=== PATIENT | female | born 1970 | race American Indian/Alaskan Native ===

== ENCOUNTER 2016-09-01 08:47 | Inpatient (IN) | payer SELFPAY ==
--- NOTE | 2016-08-31 23:57 | CP.PCM.HP ---
History of Present Illness - History of Present Illness History of Present Illness: 45yo female with h/o a large fibroid uterus reporting today for a scheduled total abdominal hysterectomy. The risks of the procedure including but not restricted to injury to vital organs like the bowels, bladder, major blood vessels as well as ureters with possibilities of bleeding and infection and alternatives to the procedure including conservative management, [place], Endometrial ablation were discussed. Pt has verbalized understanding of the issues discussed and signs a consent. Present on Admission - Present on Admission Any Indicators Present on Admission: No Review of Systems - Review of Systems All systems: reviewed and no additional remarkable complaints except Past Patient History - Past Medical History & Family History Past Medical History?: Yes - Past Social History Smoking Status: Never Smoked Drugs: Denies - CARDIAC Hx Cardiac Disorders: No - PULMONARY Hx Respiratory Disorders: No - NEUROLOGICAL Hx Neurological Disorder: No - HEENT Hx HEENT Problems: No - RENAL Hx Chronic Kidney Disease: No - ENDOCRINE/METABOLIC Hx Endocrine Disorders: Yes Hx Hypothyroidism: Yes - HEMATOLOGICAL/ONCOLOGICAL Hx Blood Disorders: No - INTEGUMENTARY Hx Dermatological Problems: No - MUSCULOSKELETAL/RHEUMATOLOGICAL Hx Musculoskeletal Disorders: No - GASTROINTESTINAL Hx Gastrointestinal Disorders: No - GENITOURINARY/GYNECOLOGICAL Hx Genitourinary Disorders: No : 2 Para: 1 Termination of : 1 - PSYCHIATRIC Hx Psychophysiologic Disorder: No - SURGICAL HISTORY Hx Surgeries: Yes Hx Section: Yes (X1) - ANESTHESIA Hx Anesthesia: Yes Hx Anesthesia Reactions: No Hx Malignant Hyperthermia: No Has any member of the family had a problem w/ anesthesia?: No Meds Allergies/Adverse Reactions: Allergies Allergy/AdvReac Type Severity Reaction Status Date / Time No Known Allergies Allergy Verified 08/25/16 10:11 Physical Exam - Constitutional Appears: Well - Eye Exam Eye Exam: Normal appearance - Respiratory Exam Respiratory Exam: Clear to Auscultation Bilateral, NORMAL BREATHING PATTERN - Cardiovascular Exam Cardiovascular Exam: REGULAR RHYTHM, RRR - GI/Abdominal Exam GI & Abdominal Exam: Normal Bowel Sounds - Exam External exam: NORMAL EXTERNAL EXAM Bimanual exam: Uterine Enlargement - Extremities Exam Extremities exam: Positive for: normal inspection - Neurological Exam Neurological exam: Alert, Oriented x3 - Psychiatric Exam Psychiatric exam: Normal Affect Results - Vital Signs Recent Vital Signs: Last Vital Signs Temp 96.8 F L 08/25/16 11:54 Pulse 74 08/25/16 11:54 Resp 18 08/25/16 11:54 BP 106/60 08/25/16 11:54 Pulse Ox - Labs Result Diagrams: 09/02/16 07:16 09/02/16 07:16 Assessment & Plan (1) Fibroid uterus Status: Deleted (2) Menorrhagia Status: Deleted - Assessment and Plan (Free Text) Plan: - IV Fluids - Sequential compression device - Mefoxin 2gms 1 hour before incision - Folleys catheter - call out clerk to the OR - Date & Time Date: 09/01/16 Time: 07:45
[2016-09-01] MEDS ORDERED: Bupivacaine 0.5% Inj(30mL) ONE (09:30)
[2016-09-01] MEDS ORDERED: Lidocaine 1% Inj (20ml) ONE (09:30)
[2016-09-01 10:08] VITALS: BMI 26.6
[2016-09-01] MEDS ORDERED: Midazolam 2 MG/2 ML VIAL ONE (10:28)
[2016-09-01] MEDS ORDERED: Propofol 10 mg/ml Inj (20 ML) ONE (10:28)
[2016-09-01] MEDS ORDERED: Rocuronium 10 mg/ml (5 ml) ONE (10:29)
[2016-09-01] MEDS ORDERED: Lactated Ringer's 1,000 ML IV ONE (10:55)
[2016-09-01] MEDS ORDERED: Dexamethasone 4 mg/1 ml ONE (11:14)
[2016-09-01] MEDS ORDERED: Neostigmine Methylsulfate 2 MG/2 ML ML IV ONE (12:13)
[2016-09-01] MEDS ORDERED: HYDROmorphone 0.5 mg/0.5 ml ISec ONE (12:38)
[2016-09-01] MEDS: HYDROmorphone 0.5 mg/0.5 ml ISec IVP PRN ×4 (12:40→14:00)
[2016-09-01] MEDS ORDERED: Lactated Ringer's 1,000 ML IV SCH (12:45)
[2016-09-01] MEDS ORDERED: Naloxone 0.4 mg/ml Inj (Adult) IVP PRN (12:48)
[2016-09-01] MEDS ORDERED: DiphenhydrAMINE 50 mg/ml Inj IVP PRN (12:48)
--- NOTE | 2016-09-01 12:57 | PCM.SURG1 ---
Surgeon's Initial Post Op Note - Surgeon's Notes Surgeon: Dr Bauman Deputy Administrator: Dr Pate Type of Anesthesia: General Endo Anesthesia Administered By: Dr Gaetano Manzano Pre-Operative Diagnosis: Fibroid uterus with Menorrhagia Operative Findings: Large Multinodular Fibroid uterus of about 18wks. Both Ovaries and Fallopian tubes were normal in appearance. Omental adhesions to the posterior surface of the anterior abdominal wall which were released with Ligasure device. IVFluid intake - 1000mls. Urine Output- 300mls. EBL- 100mls Post-Operative Diagnosis: Same as preop diagnosis Operation Performed: Total abdominal Hysterectomy with bilateral salpingectomy and release of adhesions. Specimen/Specimens Removed: Uterus with cervis, Right and left fallopian tubes. Estimated Blood Loss: EBL {In ML}: 100 Blood Products Given: N/A Post-Op Condition: Good Date of Surgery/Procedure: 09/01/16 Time of Surgery/Procedure: 12:59
[2016-09-01] MEDS: cefOXitin 2 GM in Sodium Chloride 0.9% 100 ML IVPB SCH (18:00)
[2016-09-01] MEDS: Lactated Ringer's 1,000 ML IV SCH (22:06)
[2016-09-02] MEDS: cefOXitin 2 GM in Sodium Chloride 0.9% 100 ML IVPB SCH ×2 (00:48→08:21)
--- NOTE | 2016-09-02 07:23 | OP ---
PROCEDURE DATE: 09/01/2016 PREOPERATIVE DIAGNOSES: A 45-year-old female with fibroid uterus and menorrhagia. POSTOPERATIVE DIAGNOSES: A 45-year-old female with fibroid uterus and menorrhagia. PROCEDURE: Total abdominal hysterectomy with bilateral salpingectomy. SURGEON: Dr. Bauman. PRODUCTION EXPEDITER: Dr. Pate. Assistance for the procedure was needed for exposure of tissues and help in the conduct of the surgery. The ophthalmic surgical assistant remained with the procedure throughout its entire length. TYPE OF ANESTHESIA: General endotracheal. ANESTHESIA ADMINISTERED BY: Dr. Gaetano Manzano. OPERATIVE FINDINGS: A large multinodular fibroid uterus of about 18 x 10 x 12 cm. Both ovaries and fallopian tubes were normal in appearance. There were some omental adhesions to the posterior surface of the anterior wall of the uterus and these were released by LigaSure device. INTRAVENOUS FLUID INTAKE: 1000 mL. URINE OUTPUT: 300 mL of clear urine. ESTIMATED BLOOD LOSS: 100 mL. DESCRIPTION OF PROCEDURE: The risks, benefits, indications, and alternatives of the procedure were reviewed with the patient and informed consent was obtained. The patient was taken to the operating room with IV running and Silva catheter in place. The patient was placed in the supine position, given general anesthesia, prepped and draped in a sterile fashion. A Pfannenstiel skin incision was made about 2 cm above the pubic symphysis and this was extended sharply through the rectus fascia. The fascia was then incised bilaterally with curved Sung scissors and the muscles of the anterior abdominal white were in the midline by sharp and blunt dissection. The peritoneum was grasped between 2 pickups, elevated and entered sharply with Metzenbaum scissors. The pelvis was examined with the findings noted above. The uterus was held and brought up. Prior to bringing out the uterus, an O' James-O'Paulino retractor was placed into the incision and the bowels were packed away with moist laparotomy sponges. The uterus was brought out through the abdominal incision and anatomy assessed. The round ligaments on both sides were clamped with a LigaSure device, cauterized and transected. The anterior leaf of the broad ligament was incised along the bladder reflection to the midline from both sides. The bladder was then gently dissected off the lower uterine segment and the cervix with a sponge stick. The ovarian ligament with the fallopian tube on both sides were doubly clamped, cauterized and transected using the Bovie device. Hemostasis was visualized. The uterine arteries were skeletonized bilaterally, clamped with Geraldo clamps, transected, and suture ligated with #0 Vicryl. Again, hemostasis was assured. The uterosacral ligaments were clamped on both sides, transected, and suture ligated in a similar fashion. The cervix and the uterus were amputated with cautery. The vaginal cuff angles were closed with [id number] stitches of #0 Vicryl and were transfixed to the ipsilateral cardinal and uterosacral ligaments. The remainder of the vaginal cuff was closed with a series of interrupted #0 Vicryl [id number] sutures. Hemostasis was assured. Attention was turned to the adnexa on both sides where the fallopian tubes were picked up and fully excised using the LigaSure device on both sides. The excised fallopian tubes were sent for histopathology. Once this procedure was completed, the pelvis was irrigated copiously with warmed normal saline. All laparotomy sponges and instruments were removed from the abdomen. The anterior abdominal wall was closed in layers with 2-0 Vicryl for the peritoneum and the rectus muscles. The rectus fascia was reapproximated using Vicryl #0. The subcutaneous tissue was brought together by means of #2-0 plain catgut. The skin was closed in a subcuticular fashion using #4-0 Biosyn. All counts of instruments, laparotomy pads, and needles used were correct x 3, and the patient was sent to the recovery room awake and in stable condition. Robert Bauman MD cc: [id number] TT: 09/02/2016 07:23:10 onelia PARKER
[2016-09-02 07:35] LABS: HEMATOCRIT 36.8 % (34.0-47.0); MEAN CELL VOLUME 90.8 fl (81.0-99.0); MEAN CORPUSCULAR HEMOGLOBIN 29.7 pg (27.0-31.0); MEAN CORPUSCULAR HGB CONC 32.8 g/dL (33.0-37.0); RED CELL DISTRIBUTION WIDTH 21.4 % (11.5-14.5); WHITE BLOOD COUNT 8.1 K/uL (4.8-10.8)
[2016-09-02 07:48] LABS: BLOOD UREA NITROGEN 6 mg/dl (7-17); CALCIUM 8.5 mg/dL (8.4-10.2); CARBON DIOXIDE 28 mmol/L (22-30); CHLORIDE 103 mmol/L (98-107); GFR AFRICAN-AMERICAN > 60; GLUCOSE,RANDOM 92 mg/dL (65-105); POTASSIUM 3.7 MMOL/L (3.6-5.0); SODIUM 141 mmol/l (132-148)
[2016-09-02] MEDS: Lactated Ringer's 1,000 ML IV SCH (08:22)
[2016-09-02] MEDS: Enoxaparin 40 mg Syringe SC SCH (08:56)
--- NOTE | 2016-09-02 11:35 | CP.PCM.PN ---
Subjective - Date & Time of Evaluation Date of Evaluation: 09/02/16 Time of Evaluation: 11:33 - Subjective Subjective: 45yo female s/p REUBEN and B/L Salpingectomy, POD #1 , reports feeling well today, tolerating po, denies fever and chills , burping but not passed gas. Objective - Vital Signs/Intake and Output Vital Signs (last 24 hours): Temp Pulse Resp BP Pulse Ox 98.8 F 78 18 113/70 98 09/02/16 10:00 09/02/16 10:00 09/02/16 10:00 09/02/16 10:00 09/02/16 10:00 Intake and Output: 09/02/16 09/02/16 06:59 18:59 Intake Total 2290 Output Total 1600 Balance 690 - Medications Medications: Current Medications Diphenhydramine HCl (Benadryl) 25 mg IVP Q6 PRN PRN Reason: Itching / Pruritus Enoxaparin Sodium (Lovenox) 40 mg SC DAILY MARCIN PRN Reason: Protocol Last Admin: 09/02/16 08:56 Dose: 40 mg Hydromorphone HCl (Dilaudid 0.2 Mg/Ml Business Broker) 0 mg IV PRN PRN; Protocol PRN Reason: Pain, moderate (4-7) Last Admin: 09/02/16 08:27 Dose: 6 mg Lactated Ringer's (Lactated Ringer's) 1,000 mls @ 100 mls/hr IV .Q10H [facility] Last Admin: 09/02/16 08:22 Dose: 100 mls/hr Lactated Ringer's (Lactated Ringer's) 1,000 mls @ 125 mls/hr IV .Q8H [facility] Naloxone HCl (Narcan) 0.1 mg IVP Q2M PRN PRN Reason: Excess sedation Ondansetron HCl (Zofran Inj) 4 mg IVP Q8 PRN PRN Reason: Nausea/Vomiting Oxycodone/Acetaminophen (Percocet 5/325 Mg Tab) 2 tab PO Q4 PRN PRN Reason: Pain, severe (8-10) Stop: 09/04/16 12:46 - Labs Labs: 09/02/16 07:16 09/02/16 07:16 - Eye Exam Eye Exam: EOMI - Respiratory Exam Respiratory Exam: Clear to Ausculation Bilateral, NORMAL BREATHING PATTERN - Cardiovascular Exam Cardiovascular Exam: RRR - GI/Abdominal Exam Additional comments: Incision: Clean and dry - Extremities Exam Extremities Exam: Full ROM, Normal Inspection - Neurological Exam Neurological Exam: Oriented x3 - Psychiatric Exam Psychiatric exam: Normal Mood Assessment and Plan (1) S/P total abdominal hysterectomy Status: Acute - Assessment and Plan (Free Text) Plan: - 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
[2016-09-02] MEDS: Oxycodone/Acetaminophen 5/325 mg Tab PO PRN ×2 (12:45→20:32)
[2016-09-02] MEDS: Bacitracin OINT 15GM TOP SCH (18:46)
[2016-09-02] MEDS ORDERED: Simethicone 80 mg Chewtab PO PRN (21:39)
[2016-09-03] MEDS ORDERED: Simethicone 80 mg Chewtab PO SCH (01:00)
[2016-09-03 06:27] VITALS: RESP 20
[2016-09-03] MEDS ORDERED: Simethicone 80 mg Chewtab PO PRN ×2 (07:55→08:54)
[2016-09-03] MEDS: Bacitracin OINT 15GM TOP SCH (09:48)
[2016-09-03] MEDS: Enoxaparin 40 mg Syringe SC SCH (09:49)
[2016-09-03 15:35] VITALS: O2SAT 99
[2016-09-03 15:36] VITALS: BP 122/80; PULSE 88; TEMP 98.4
--- NOTE | 2016-09-10 09:40 | CP.PCM.DIS ---
Provider - Provider Date of Admission: 09/01/16 13:19 Attending physician: Robert Bauman Primary care physician: Maci Bartholomew MD Time Spent in preparation of Discharge (in minutes): 20 Diagnosis - Discharge Diagnosis (1) S/P total abdominal hysterectomy Status: Acute Hospital Course - Lab Results Lab Results: Most Recent Lab Values WBC 8.1 K/uL (4.8-10.8) D 09/02/16 07:16 RBC 4.06 Mil/uL (3.80-5.20) 09/02/16 07:16 Hgb 12.1 g/dL (12.0-16.0) 09/02/16 07:16 Hct 36.8 % (34.0-47.0) 09/02/16 07:16 MCV 90.8 fl (81.0-99.0) 09/02/16 07:16 MCH 29.7 pg (27.0-31.0) 09/02/16 07:16 MCHC 32.8 g/dL (33.0-37.0) L 09/02/16 07:16 RDW 21.4 % (11.5-14.5) H 09/02/16 07:16 Plt Count 297 K/uL (130-400) 09/02/16 07:16 Sodium 141 mmol/l (132-148) 09/02/16 07:16 Potassium 3.7 MMOL/L (3.6-5.0) 09/02/16 07:16 Chloride 103 mmol/L (98-107) 09/02/16 07:16 Carbon Dioxide 28 mmol/L (22-30) 09/02/16 07:16 Anion Gap 14 (10-20) 09/02/16 07:16 BUN 6 mg/dl (7-17) L 09/02/16 07:16 Creatinine 0.5 mg/dL (0.7-1.2) L 09/02/16 07:16 Est GFR ( Amer) > 60 09/02/16 07:16 Est GFR (Non-Af Amer) > 60 09/02/16 07:16 Random Glucose 92 mg/dL (65-105) 09/02/16 07:16 Calcium 8.5 mg/dL (8.4-10.2) 09/02/16 07:16 - Hospital Course Hospital Course: 45yo female s/p REUBEN and B/L salpingectomy, POD #2, clinically stable, passing gas , ambulating and tolerating meals. Pt is being discharged today with regular diet and regular activity. Pt should f/u at the clinic in 2 weeks. All other complaints could be sent to the nearest ER or to the clinic. Discharge Exam - Eye Exam Eye Exam: EOMI Pupil Exam: PERRL - Respiratory Exam Respiratory Exam: Clear to PA & Lateral, NORMAL BREATHING PATTERN - Cardiovascular Exam Cardiovascular Exam: REGULAR RHYTHM - GI/Abdominal Exam GI & Abdominal Exam: Normal Bowel Sounds Additional comments: Incisional wound: Clean and dry - Extremities Exam Extremities exam: normal inspection - Neurological Exam Neurological exam: Oriented x3 - Psychiatric Exam Psychiatric exam: Normal Mood Discharge Plan - Follow Up Plan Condition: GOOD Disposition: HOME/ ROUTINE Instructions: Ibuprofen (By mouth), Abdominal Hysterectomy (DC) Additional Instructions: may follow regular diet. may shower,pat wound dry, no vigorous scrubbing or drying follow up with dr bauman in 2 weeks Referrals: Maci Bartholomew MD [Primary Care Provider] - Clinical Quality Measures - Date & Time of Discharge Summary Date of Discharge Summary: 09/03/16 Time of Discharge Summary: 11:50
== END 2016-09-03 14:00 | disposition home or self-care (01) | DRG 359 ==
LOC: H.OPSURG 08:47 → H.PEDS 13:19
PROVIDERS: ADMIT Obstetrics & Gynecology; ATTEND Obstetrics & Gynecology
PROC: 0UT70ZZ Resection of Bilateral Fallopian Tubes, Open Approach (ICD-10-PCS; 2016-09-01)
PROC: 0UN90ZZ Release Uterus, Open Approach (ICD-10-PCS; 2016-09-01)
PROC: 0UTC0ZZ Resection of Cervix, Open Approach (ICD-10-PCS; 2016-09-01)
PROC: 0UT90ZZ Resection of Uterus, Open Approach (ICD-10-PCS; principal; 2016-09-01 10:45)
DX: D25.9 Leiomyoma of uterus, unspecified (principal); N73.6 Female pelvic peritoneal adhesions (postinfective); N92.0 Excessive and frequent menstruation with regular cycle

== ENCOUNTER 2017-12-31 08:46 | Emergency (ER) | payer SELFPAY ==
[2017-12-31 08:53] VITALS: BP 119/69; PULSE 77; RESP 18; TEMP 98.1; O2SAT 100
[2017-12-31 08:54] VITALS: BMI 26.3
--- NOTE | 2017-12-31 09:44 | ED PDOC ---
HPI: General Adult Time Seen by Provider: 12/31/17 09:30 Chief Complaint (Nursing): Weakness/Neurological Deficit Chief Complaint (Provider): numbness/tingling History Per: Patient History/Exam Limitations: no limitations Onset/Duration Of Symptoms: Days (12), Gradual Have you had recent travel within the past 21 days to any of the following countries: [place], [place], [place] or [place]?: No Current Symptoms Are (Timing): Still Present Severity: Severe Additional Complaint(s): pt p/w + left hand/arm numbness/tingling that began > 12 days ago; pt states she was pulling weeds one day and the next day noted left index finger tip swollen and subsequently tingling/numb occurring afterwards ~ 11 days; pt states over the last 1 week noted the progression of the numbness/tingling going upwards towards her left arm/shoulder area; pt states the numbness/ tingling are waxing and waning and is constantly there however for ~ 1 week now ; pt states NO WEAKNESS, no focal weakness, no slurr speech, no cotton, no vision changes, no facial changes, no fever/chills/sweats, no cp/sob/palpitations, no neck pain, no abd pain, no n/v, no urinary/bowel changes, no fall/trauma/sick contact/travel; no rashes/bleeding. Pt is here for further eval. pt's without other complaints. pt contacted her PCP to make an appointment, but was told by the pattern drafter that she should come to ED instead. PCP: rodney camacho right hand dominate Family hx: unremarkable pt lives with a roommate NIHSS Stroke Scale 3 - Date/Time Evaluation Performed Date Performed: 12/31/17 Time Performed: 09:42 When Was NIHSS Performed: Baseline - How Severe is the Stroke Level of Consciousness: 0=Alert LOC to Questions: 0=Both comments correct LOC to commands: 0=Obeys both correctly Best Gaze: 0=Normal Visual: 0=No visual loss Facial: 0=Normal Motor Arm - Left: 0=No drift Motor Arm - Right: 0=No drift Motor Leg - Left: 0=No drift Motor Leg - Right: 0=No drift Limb Ataxia: 0=Absent Sensory: 0=Normal Best Language: 0=No aphasia Dysarthia: 0=Normal articulation Extinction & Inattention (Neglect): 0=Normal, no object Score: 0 Past Medical History Reviewed: Historical Data, Nursing Documentation, Vital Signs Vital Signs: Last Vital Signs Temp 98.1 F 12/31/17 08:50 Pulse 77 12/31/17 08:50 Resp 18 12/31/17 08:50 BP 119/69 12/31/17 08:50 Pulse Ox 100 12/31/17 12:34 - Medical History PMH: Hypothyroidism Denies: Chronic Kidney Disease - Surgical History Surgical History: No Surg Hx - Family History Family History: States: No Known Family Hx - Living Arrangements Living Arrangements: With Friends/Others - Social History Alcohol: None Drugs: Denies - Home Medications Home Medications: Ambulatory Orders Medication Instructions Recorded Ferrous Sulfate [Feosol] 325 mg PO BID 09/01/16 Levothyroxine Sodium [Unithroid] 125 mcg PO DAILY 09/01/16 - Allergies Allergies/Adverse Reactions: Allergies Allergy/AdvReac Type Severity Reaction Status Date / Time No Known Allergies Allergy Verified 12/31/17 09:03 Review of Systems ROS Statement: Except As Marked, All Systems Reviewed And Found Negative Constitutional: Negative for: Fever, Chills, Sweats, Weakness, Malaise Eyes: Negative for: Pain, Vision Change ENT: Negative for: Ear Pain, Ear Discharge Cardiovascular: Negative for: Chest Pain, Palpitations, Light Headedness Respiratory: Negative for: Cough, Shortness of Breath, SOB with Exertion Gastrointestinal: Negative for: Nausea, Vomiting, Abdominal Pain Genitourinary Female: Negative for: Dysuria, Hematuria, Pelvic Pain Musculoskeletal: Positive for: Arm Pain. Negative for: Neck Pain Skin: Negative for: Rash Neurological: Positive for: Numbness, Other (tingling left arm). Negative for: Weakness, Altered Mental Status, Headache Psych: Negative for: Anxiety, Psychosis Physical Exam - Reviewed Nursing Documentation Reviewed: Yes Vital Signs Reviewed: Yes (WNL) - Physical Exam Appears: Positive for: Well (alert/awake, GCS = 15, oriented x 3, uncomfortable , NAD, resting in bed, cooperative; interactive), Non-toxic, No Acute Distress, Uncomfortable Head Exam: Positive for: ATRAUMATIC, NORMAL INSPECTION, NORMOCEPHALIC Skin: Positive for: Normal Color (cap refill < 1sec, no ulcerations, no petechiae, no rashes/lesions), Warm, Dry. Negative for: Rash Eye Exam: Positive for: Normal appearance, EOMI, PERRL, Other (visual field intact b/l). Negative for: Nystagmus ENT: Positive for: Normal ENT Inspection, Pharynx Is (WNL), Other (fair dentitions; no drooling/stridor, no exudate/lesions, no hoarseness) Neck: Positive for: Normal (intact ROM, no midline tenderness, no nuchal rigidity, no meningeal signs, no step off, no gross deformities), Painless ROM, Supple, Trachea Midline Cardiovascular/Chest: Positive for: Regular Rate, Rhythm, Chest Non Tender, Other (+S1, +S2, no m/r/r) Respiratory: Positive for: Normal Breath Sounds, Other (CTA b/l, no w/r/r, no tachypenia, no accessory muscle use noted) Pulses-Carotid (L): 2+ Pulses-Carotid (R): 2+ Gastrointestinal/Abdominal: Positive for: Normal Exam, Bowel Sounds, Soft, Other (well nourished female, no focal tenderness, no masses/rebound/guarding/ rigidity, no rojas's sign, no mcburney's point tenderness) Back: Positive for: Normal Inspection. Negative for: Muscle Spasm Extremity: Positive for: Normal ROM, Other (strength 5/5 grossly intact in all limbs, neurovasc intact b/l, + ambulatory, no gross deformities, INTACT ROM). Negative for: Tenderness DTR - Knee (R): 2+ DTR - Knee (L): 2+ Neurologic/Psych: Positive for: Alert, hand plug shaper II-XII, Oriented, Other (CNII-XII WNL , no facial asymmetries, no slurr speech, oriented x 3). Negative for: Motor/ Sensory Deficits, Gait, Facial Droop - Laboratory Results Result Diagrams: 12/31/17 09:45 12/31/17 09:45 - ECG ECG: Positive for: Interpreted By Me, Viewed By Me Interpretation Of Abn EKG: NSR at 75 bpm, normal axis, no ectopy, inverted T in leads III/V1-2, qs in lead III/V1-2, no st changes, ABNL EKG; no gross changes compare with old ekg 08/2016 O2 Sat by Pulse Oximetry: 100 Pulse Ox Interpretation: Normal - Radiology X-Ray: Interpreted by Me, Viewed By Me - Progress ED Course And Treament: 12:20pm - pt is doing well currently pt denied any worsening symptoms/pain NIH stroke scale ~ 0 pt is made aware of her medical results pt is encouraged no heavy lifting/repetitive motions until symptoms improves pt is encouraged outpt f/u pt will be discharged home Re-evaluation Time: 12:20 Condition: Re-examined, Unchanged Medical Decision Making Medical Decision Making: Impression: left arm numbness/tingling x > 1 week i have consider all the differential diagnosis regarding pt's chief medical complaints/clinical findings, including but are not limited to: likely radiculopathy; unlikely cva vs tia; unlikely MS; unlikely ACS A/P: left arm parathesia - labs - iv - xray, ct - supportive care - observe/reevaluation Disposition - Clinical Impression Clinical Impression: Radicular neuropathy, Arm numbness left, General medical exam - Patient ED Disposition Is Patient to be Admitted: No Counseled Patient/Family Regarding: Studies Performed, Diagnosis, Need For Followup, Rx Given, Smoking Cessation - Disposition Referrals: PCP,NO [Non-Staff] - [employer] [place] [Outside] [facility] [Outside] [facility] [Outside] Disposition: Routine/Home Disposition Time: 12:30 Condition: STABLE Additional Instructions: Make sure to see your doctor in 1-2 days DRINK PLENTY OF FLUIDS STOP SMOKING IF YOU SMOKE AVOID heavy lifting AVOID repetitive motions until your symptoms eases take your medications as prescribed RETURN TO ED IF worse pain, cant breath, persistent vomiting, high fever >101- 102 for hours, altered behavior, slurr speech, facial changes, focal weakness ( arm/leg or both), unable to urinate, heavy/persistent bleeding, passing out, chest pain, or other medical emergencies Instructions: Radiculopathy (DC), Hand Numbness Forms: [employer] (Albanian) Print Language: POLISH
[2017-12-31] MEDS ORDERED: Sodium Chloride 0.9% 1,000 ML IV SCH (09:45)
--- NOTE | 2017-12-31 09:54 | RAD ---
Date of service: 12/31/2017 HISTORY: left arm numb/tingling x > 10 days COMPARISON: No prior. FINDINGS: LUNGS: No active pulmonary disease. PLEURA: No significant pleural effusion identified, no pneumothorax apparent. CARDIOVASCULAR: Normal. OSSEOUS STRUCTURES: No significant abnormalities. VISUALIZED UPPER ABDOMEN: Normal. OTHER FINDINGS: None. IMPRESSION: No active disease.
[2017-12-31 10:09] LABS: BASO % 0.5 % (0.0-2.0); EOS # 0.1 K/uL (0.0-0.7); EOS % 2.2 % (0.0-4.0); LYMPH # 1.4 K/uL (1.0-4.3); LYMPH % 24.7 % (20.0-40.0); MEAN CELL VOLUME 93.8 fl (81.0-99.0); MEAN CORPUSCULAR HEMOGLOBIN 31.7 pg (27.0-31.0); MEAN CORPUSCULAR HGB CONC 33.8 g/dL (33.0-37.0); MEAN PLATELET VOLUME 7.7 fl (7.2-11.7); MONO # 0.9 K/uL (0.0-0.8); MONO % 15.2 % (0.0-10.0); NEUT # 3.2 K/uL (1.8-7.0); NEUT % 57.4 % (50.0-75.0); NRBC % 0.1 % (0.0-0.0); RBC 4.72 Mil/uL (3.80-5.20); RED CELL DISTRIBUTION WIDTH 13.4 % (11.5-14.5); WHITE BLOOD COUNT 5.6 K/uL (4.8-10.8)
[2017-12-31 10:20] LABS: ALB/GLOB RATIO 1.2 (1.0-2.1); ALBUMIN 4.3 g/dL (3.5-5.0); ALT/SGPT 31 U/L (9-52); AST/SGOT 26 U/L (14-36); BLOOD UREA NITROGEN 11 mg/dl (7-17); CALCIUM 9.3 mg/dL (8.4-10.2); GFR NON-AFRICAN AMERICAN > 60
--- NOTE | 2017-12-31 10:51 | CT ---
Date of service: 12/31/2017 PROCEDURE: CT HEAD WITHOUT CONTRAST. HISTORY: left arm numb/tingling > 10 days ago COMPARISON: None available. TECHNIQUE: Axial computed tomography images were obtained through the head/brain without intravenous contrast. Radiation dose: Total exam DLP = 806.1 mGy-cm. This CT exam was performed using one or more of the following dose reduction techniques: Automated exposure control, adjustment of the mA and/or kV according to patient size, and/or use of iterative reconstruction technique. FINDINGS: HEMORRHAGE: No intracranial hemorrhage. BRAIN: No mass effect or edema. No atrophy or chronic microvascular ischemic changes. VENTRICLES: Unremarkable. No hydrocephalus. CALVARIUM: Unremarkable. PARANASAL SINUSES: Unremarkable as visualized. No significant inflammatory changes. MASTOID AIR CELLS: Unremarkable as visualized. No inflammatory changes. OTHER FINDINGS: None. IMPRESSION: No acute intracranial pathology.
--- NOTE | 2017-12-31 10:56 | CT ---
Date of service: 12/31/2017 PROCEDURE: CT Cervical Spine without contrast HISTORY: left arm numb/tingling COMPARISON: None available. TECHNIQUE: Axial computed tomography images were obtained of the cervical spine without the use of intravenous contrast. Coronal and sagittal reformatted images were created and reviewed. Radiation dose: Total exam DLP = 337.6 mGy-cm. This CT exam was performed using one or more of the following dose reduction techniques: Automated exposure control, adjustment of the mA and/or kV according to patient size, and/or use of iterative reconstruction technique. FINDINGS: VERTEBRAE: No fracture. Reversal of the normal lordosis. No destructive bony lesion. DISCS/SPINAL CANAL/NEURAL FORAMINA: No significant central canal or neural foraminal stenosis. Discs heights are grossly preserved. PARASPINAL SOFT TISSUES: Unremarkable. OTHER FINDINGS: None. IMPRESSION: Reversal of the normal cervical lordosis which may be related to positioning/spasm. No acute fracture or significant central canal or neural foraminal stenosis.
[2017-12-31 11:01] LABS: SQUAMOUS EPITHIAL 8 /hpf (0-5); URINE BACTERIA FEW (<OCC); URINE BILIRUBIN NEGATIVE (NEGATIVE); URINE BLOOD NEGATIVE (NEGATIVE); URINE CLARITY CLOUDY (Clear); URINE COLOR STRAW (YELLOW); URINE GLUCOSE (UA) NEG (Normal); URINE LEUKOCYTE ESTERASE NEG Leu/uL (Negative); URINE PROTEIN NEGATIVE (NEGATIVE); URINE UROBILINOGEN 0.2-1.0 mg/dL (0.2-1.0)
--- NOTE | 2018-01-01 17:49 | CARD ---
APPROVED REPORT Date of service: 12/31/2017 EKG Measurement Heart [id number] <Conclusion> Normal sinus rhythm Possible Left atrial enlargement Septal infarct, age undetermined Abnormal ECG
== END 2017-12-31 13:00 | disposition home or self-care (01) ==
LOC: H.ER 08:46
DX: G56.30 Lesion of radial nerve, unspecified upper limb (principal); G62.9 Polyneuropathy, unspecified; E03.9 Hypothyroidism, unspecified
CPT/HCPCS: 70450; 71045; 72125; 80053; 81003; 81025; 84443; 85025; 93005; 99284; J7030